=== PATIENT | male | born 1940 | race Caucasian/White ===

== ENCOUNTER → 2020-07-01 19:51 | Outpatient (ROUT) | payer OTHER, SELFPAY ==
[2020-07-01 20:12] LABS: HEMOLYSIS < 15 (0-50)
[2020-07-01 20:19] LABS: Aspartate Aminotransferase 32 IU/L (17-59); BUN Creatinine Ratio 17.6 (6-22); Blood Urea Nitrogen 12 mg/dL (9-20); Calcium 9.4 mg/dL (8.4-10.2); Carbon Dioxide 30 mmol/L (22-32); Chloride 99 mmol/L (98-107); Cholesterol 198 mg/dL (140-199); Estimated Glomerular Filt Rate > 60.0 mL/min (>60); Glucose 85 mg/dL (80-110); HDL Cholesterol 101 mg/dL (40-60); LDL Cholesterol Calculated 79 mg/dL (<100); Potassium 3.9 mmol/L (3.4-5.1); Sodium 136 mmol/L (137-145); Triglycerides 88 mg/dL (35-150)
[2020-07-01 21:07] LABS: Vitamin B12 639 pg/mL (239-931)
[2020-07-04 15:48] LABS: Albumin 3.9 g/dL (2.9-4.4); Alpha 1 Globulin 0.2 g/dL (0.0-0.4); Alpha 2 Globulin 0.8 g/dL (0.4-1.0); Protein, Total 6.9 g/dL (6.0-8.5)
[2020-07-04 18:46] LABS: Prostate Specific Antigen < 0.064 ng/mL (0.10-4.00)
[2020-07-17 11:00] LABS: PDF SEE EMR REFERENCE
== END ==
PROVIDERS: PCP Internal Medicine; Visit Provider Internal Medicine
DX: E78.2 Mixed hyperlipidemia (principal); N40.1 Benign prostatic hyperplasia with lower urinary tract symptoms
CPT/HCPCS: 80048; 80061; 82607; 83036; 84153; 84155; 84165; 84450

== ENCOUNTER → 2021-04-25 11:01 | Outpatient (CLI) | payer MEDICARE, SELFPAY ==
--- NOTE | 2021-04-25 | DI.RAD.S_ITS ---
PROCEDURE: XR KNEE RT 3V INDICATIONS: Unilateral primary osteoarthritis, right knee TECHNIQUE: 3 views of the knee were acquired. COMPARISON: None. FINDINGS: Bones: No fractures or dislocations. There is near severe lateral compartment right knee joint degenerative osteoarthritis with near [id number] articulation. Moderately severe patellofemoral joint knee joint osteoarthritis is present. Small joint effusion is seen in the suprapatellar bursal space, no loose body. No suspicious bony lesions. Soft tissues: No suspicious soft tissue calcifications. IMPRESSION: Near severe lateral compartment knee joint osteoarthritis, moderately severe patellofemoral joint arthritis with reactive small joint effusion. Dictated by: Philip Vernon M.D. on 04/25/2021 at 12:17 Approved by: Philip Vernon M.D. on 04/25/2021 at 12:18
== END ==
PROVIDERS: PCP Internal Medicine; Referring Provider Internal Medicine; Visit Provider Internal Medicine
DX: M17.11 Unilateral primary osteoarthritis, right knee (principal); M25.461 Effusion, right knee
CPT/HCPCS: 73562

== ENCOUNTER → 2021-10-13 10:44 | Outpatient (CLI) | payer MEDICARE, SELFPAY ==
[2021-10-13 14:01] LABS: COVID19 -Nasal RAPID Negative (Negative)
== END ==
PROVIDERS: PCP Internal Medicine; Visit Provider Nurse Practitioner Family
DX: Z01.812 Encounter for preprocedural laboratory examination (principal); Z20.822 Contact with and (suspected) exposure to COVID-19
CPT/HCPCS: 87635; C9803

== ENCOUNTER → 2021-10-22 10:22 | Outpatient (CLI) | payer OTHER, SELFPAY ==
[2021-10-22 12:20] LABS: COVID19 -Nasal RAPID Negative (Negative)
== END ==
PROVIDERS: PCP Internal Medicine; Visit Provider Family Medicine Sleep Medicine
DX: Z20.822 Contact with and (suspected) exposure to COVID-19 (principal)
CPT/HCPCS: 87635; C9803

== ENCOUNTER 2021-10-31 00:23 | Emergency (ER) | payer OTHER, SELFPAY ==
--- NOTE | 2021-10-31 00:06 | ED_ITS ---
HPI - SOB/Dyspnea General Chief Complaint: Shortness of Breath/Dyspnea Stated Complaint: Short of breath Time Seen by Provider: 10/31/21 00:29 History of Present Illness HPI Narrative: 81-year-old male former smoker with history of BPH, hypothyroid, hyperlipidemia presents by EMS for evaluation of shortness of breath just prior to arrival. Patient had been in his normal state of health and had an outpatient right total knee this morning, pain was well tolerated on the combination of oxycodone, Tylenol and ibuprofen. Just prior to arrival patient had a relatively sudden onset shortness of breath with wheezing, increased oral secretions and 1 episode of vomiting. EMS was activated and on their arrival noted his oxygen level to be in the mid 80s and he was wheezing. He was given bronchodilators and had a complete resolution of symptoms prior to his arrival. He denies any rash, itching or chest pain. He denies any medications or foods that are new to him he denies any fever or chills, he has no significant pain, bleeding or drainage from his knee Related Data Home Medications Medication Instructions Recorded Confirmed finasteride 5 mg tablet 5 mg PO DAILY 10/06/21 10/06/21 levothyroxine 137 mcg tablet 137 mcg PO DAILY 10/06/21 10/06/21 rosuvastatin 10 mg tablet 10 mg PO DAILY 10/06/21 10/06/21 vit C 250 mg-vit E 90 mg-zinc 40 1 tab PO BID 10/06/21 10/06/21 mg-copper 1 [id number] capsule (PreserVision AREDS-2) Previous Rx's Medication Instructions Recorded prednisone 20 mg tablet 20 mg PO DAILY #5 tab 10/31/21 Allergies Allergy/AdvReac Type Severity Reaction Status Date / Time No Known Drug Allergies Allergy Verified 10/06/21 10:06 Review of Systems Review of Systems Narrative: GENERAL: Denies chills, fatigue, malaise, fever, sweats. HEENT: see HPI RESPIRATORY: See HPI CARDIOVASCULAR: Denies chest pain, palpitations, orthopnea, edema, GASTROINTESTINAL: see HPI : Denies dysuria, frequency, incontinence, hematuria, urinary retention. MUSCULOSKELETAL: denies weakness, joint pain, or bony pain SKIN: Denies rash, skin lesions, or other NEUROLOGIC: Denies weakness, headache, numbness, change in speech, confusion, seizures, incoordination. PSYCHIATRIC: No concerning psychosocial issues. 12 point review of systems is negative except for those stated above Patient History Medical History Easy bruisability Enlarged prostate HLD (hyperlipidemia) Hypothyroid Osteoarthritis Sinus drainage Surgical History Hx of appendectomy (1971) Hx of left inguinal hernia repair (1998) Hx of right inguinal hernia repair (1987) Hx of right inguinal hernia repair (2008) Hx of tonsillectomy (194) Social History household members: spouse Smoking Status: Former smoker alcohol intake: former Exam Narrative Exam Narrative: GENERAL: [81 year old patient appears stated age. Well-developed patient, in no obvious distress, resting comfortably, no conversational dyspnea, tachypnea or hypoxemia HEAD: Atraumatic. Normocephalic. EYES: Pupils equal round and reactive. Extraocular motions intact. No scleral icterus. No injection or drainage. ENT: Nose without bleeding, purulent drainage. Throat without erythema, tonsillar hypertrophy or exudate. Airway patent. NECK: Trachea midline. Non tender CARDIOVASCULAR: Regular rate and rhythm without murmurs, gallops, or rubs. RESPIRATORY: Clear to auscultation. Breath sounds equal bilaterally. No wheezes, rales, or rhonchi. No increased work of breathing, no use of accessory muscles, tachypnea or hypoxemia GASTROINTESTINAL: Abdomen soft, non-tender, nondistended. EXTREMITIES: No edema or joint tenderness. Right knee still wrapped, not causing patient trouble BACK: Nontender without deformity or crepitance. No flank tenderness. NEURO: AOx3. SKIN: No rash or erythema of visible areas Initial Vital Signs Initial Vital Signs: Vital Signs Temperature 98.2 F 10/31/21 00:28 Pulse Rate 91 H 10/31/21 00:28 Respiratory Rate 16 10/31/21 00:28 Blood Pressure 153/65 H 10/31/21 00:28 Pulse Oximetry 95 10/31/21 00:28 Course Orders Ordered: ED Orders 10/31/21 00:29 Consult to Respiratory Therapy Evaluate & Treat EKG-12 Lead Stat 10/31/21 00:30 XR chest 1V Stat 10/31/21 00:43 Basic Metabolic Panel Stat Complete Blood Count AUTO DIFF Stat Magnesium Stat NT-proBNP (BNP-Adult 18+) Stat Troponin & CK Cardiac Panel Stat 10/31/21 00:50 COVID19 -Nasal swab/Pre-Proc Stat Famotidine (Famotidine 20 Mg/2 Ml Vial) 20 mg IV NOW JAZMIN Last Admin: 10/31/21 00:42 Dose: 20 mg Documented by: RYAN Discontinued Medications Methylprednisolone (Methylprednisolone 125 Mg/2 Ml Vial) 125 mg IV NOW ONE Stop: 10/31/21 00:30 Last Admin: 10/31/21 00:42 Dose: 125 mg Documented by: RYAN Reevaluation(s) Reevaluation #1: Patient continues to be asymptomatic in the department for the duration of his visit. He ambulates through the department with the use of a walker and demonstrates no signs of respiratory distress, ambulatory pulse ox remains in the mid 90s, respirations nonlabored Consultations Consultation #1: Discussed with on-call orthopedist (Dannielle) who sure the opinion the patient is appropriate for discharge, return precautions to be given and follow-up as previously planned Vital Signs Vital signs: Vital Signs - 8 hr 10/31/21 00:28 Temperature 98.2 F Pulse Rate 91 H Respiratory Rate 16 Blood Pressure 153/65 H Pulse Oximetry 95 MDM - SOB/Dyspnea Lab Data Result diagrams: 10/31/21 00:43 10/31/21 00:43 Labs: Lab Results 10/31/21 10/31/21 10/31/21 Range/Units 00:43 00:43 00:50 WBC 8.3 (4.5-11.0) X10^3/uL RBC 3.63 L (4.5-5.9) X10^6/uL Hgb 11.3 L (13.5-17.5) g/dL Hct 33.3 L (41-53) % MCV 91.6 (80-100) fL MCH 31.0 (26-34) PG MCHC 33.9 (30-36) % RDW 13.4 (11.6-14.8) % Plt Count 208 (150-400) X10^3/uL Neut % (Auto) 76.4 H (50-75) % Lymph % (Auto) 8.3 L (25-40) % Hanson % (Auto) 15.2 H (3-14) % Eos % (Auto) 0.0 L (2-4) % Baso % (Auto) 0.1 (0-2) % Neut # (Auto) 6300 (1072-6885) /uL Lymph # (Auto) 700 L (3193-8612) /uL Hanson # (Auto) 1300 H (0-900) /uL Eos # (Auto) 0 (0-450) /uL Baso # (Auto) 0 (0-100) /uL Sodium 129 L (137-145) mmol/L Potassium 3.9 (3.4-5.1) mmol/L Chloride 99 (98-107) mmol/L Carbon Dioxide 26 (22-32) mmol/L BUN 14 (9-20) mg/dL Creatinine 0.74 (0.66-1.25) mg/dL Estimated GFR > 60.0 (>60) mL/min BUN/Creatinine Ratio 18.9 (6-22) Glucose 155 H (80-110) mg/dL Calcium 9.0 (8.4-10.2) mg/dL Magnesium 2.0 (1.6-2.3) mg/dL Total Creatine Kinase 150 (55-170) U/L CK-MB (CK-2) 1.16 (<2.37) ng/mL CK-MB (CK-2) Rel Index 0.8 L (1.5-5.0) % Troponin I < 0.012 (0.01-0.034) ng/mL NT-Pro-B Natriuret Pep 432 (<450) pg/mL SARS-CoV-2 (PCR) Negative (Negative) Imaging Data Chest x-ray: Radiologist's Impression: Krzysztof York??81??M??1940 ? Allergy/Adv: No Known Drug Allergies Close Chest X-Ray (Signed) Elizabet Nice - 10/31/21 Outside EKG 09/23/21 Knee X-Ray (Signed) Philip Vernon - 04/25/21 Launch?[address] [address] XRay Report Signed Patient: Krzysztof York MR#: [id number] : 1940 Acct:[id number] Age/Sex: 81 / M Date of Service: 10/31/21 Loc: ED Accession Number: [id number] ?? Procedure: XR chest 1V Ordering Provider: Noe Alonzo D.O. PROCEDURE:? XR CHEST 1V ? INDICATIONS:? Shortness of breath ? TECHNIQUE:? One view of the chest was acquired.? ? COMPARISON:? None. ? FINDINGS:? ? Surgical changes and devices:? None.? ? Lungs and pleura:? Lungs are clear.? No pleural effusions or pneumothorax.? ? Mediastinum:? Mediastinal contours appear normal.? Heart size is normal.? ? Bones and chest wall:? No suspicious bony lesions.? Overlying soft tissues appear unremarkable.? ? IMPRESSION:? No acute pulmonary process. ? ? Dictated by: Elizabet Nice M.D. on 10/31/2021 at 1:02 ? ? Approved by: Elizabet Nice M.D. on 10/31/2021 at 1:02 ? MDM Narrative Medical decision making narrative: Patient presents by EMS for sudden onset shortness of breath, wheezing, increased oral secretions and an episode of vomiting. Patient had complete resolution of symptoms with above-stated therapies. Multiple diagnoses considered including pneumonia and even pulmonary embolism in the aftermath of surgery but the timeline seems very unlikely along with other elements of history and physical exam. Furthermore, chest x-ray is unremarkable. His history, physical exam and response to therapies raises the suspicion of histamine reaction. He seemed to have no issue in the postoperative phase and tolerated oxycodone earlier in the day which would suggest it is unlikely his opioids. He did have a combination of some Jell-O and applesauce just prior to the event, though he reports having this combination of foods in the past with out issue. Discharge Plan Departure Patient Disposition: Home Clinical Impression: Acute dyspnea, Allergic reaction Instructions: DI for Shortness of Breath Activity Restrictions/Additional Instructions: *You have been diagnosed with [shortness of breath, likely due to a histamine reaction, possibly even allergic reaction. Your history, physical exam, labs, x-ray and response to therapies is very reassuring. As we discussed, I called on-call Orthopedics who are in agreement with the plan for discharge and the medications *What to do: *Please continue to take your regular medications as directed. Also, as we discussed please consider the addition of 2 types of antihistamines which are both available [id number]. First of all, Benadryl (diphenhydramine) is a histamine type 1 sangeeta and Pepcid is a histamine type 2 sangeeta. You may continue taking the Flonase that you had been taking up until a few weeks ago as well [x ] New medication prescriptions sent to your pharmacy: [[facility] ] [ ] New medication written as a paper prescription [ ] No new medications given *Please follow up with your primary care provider in 2-3 days, call for an appointment. Let them know you were seen in the Emergency Department and that we ask that you be seen in follow up. We will electronically transmit a record of today's note if your PCP is in our system *If you do not have a primary care provider please contact the [facility] Resource line at [phone]. They will ask some questions about your medical history and help get you set up with a doctor in the community. *Return to Emergency Department if you should have any new, worsening or concerning symptoms, such as [fever greater than 101 F, shaking chills, worsening pain, persistent vomiting or other bothersome symptoms] Prescriptions: New prednisone 20 mg tablet 20 mg PO DAILY Qty: 5 0RF Rx Instructions: administer with food or milk No Action levothyroxine 137 mcg Tablet 137 mcg PO DAILY 0RF finasteride 5 mg Tablet 5 mg PO DAILY 0RF rosuvastatin 10 mg Tablet 10 mg PO DAILY 0RF PreserVision AREDS-2 250-90-40-1 mg Capsule 1 tab PO BID 0RF Referrals: Tj Epps MD [Primary Care Provider] - Elvis Ledezma MD [Physician] -
[2021-10-31 00:28] VITALS: BP 153/65; PULSE 91; RESP 16; TEMP 36.8; O2SAT 95; BMI 25.1
--- NOTE | 2021-10-31 00:30 | DI.RAD.S_ITS ---
PROCEDURE: XR CHEST 1V INDICATIONS: Shortness of breath TECHNIQUE: One view of the chest was acquired. COMPARISON: None. FINDINGS: Surgical changes and devices: None. Lungs and pleura: Lungs are clear. No pleural effusions or pneumothorax. Mediastinum: Mediastinal contours appear normal. Heart size is normal. Bones and chest wall: No suspicious bony lesions. Overlying soft tissues appear unremarkable. IMPRESSION: No acute pulmonary process. Dictated by: Elizabet Nice M.D. on 10/31/2021 at 1:02 Approved by: Elizabet Nice M.D. on 10/31/2021 at 1:02
[2021-10-31 00:34] VITALS: PULSE 86; O2SAT 97
[2021-10-31] MEDS: methylPREDNISolone 125 MG/2 ML VIAL IV (00:42)
[2021-10-31] MEDS: FAMOTIDINE 20 MG/2 ML VIAL IV (00:42)
[2021-10-31 01:00] VITALS: PULSE 82; RESP 21; O2SAT 96
[2021-10-31 01:04] LABS: Add Manual Diff / Slide Review NO; Basophils Absolute Auto 0 /uL (0-100); Basophils Percent Auto 0.1 % (0-2); Eosinophils Absolute Auto 0 /uL (0-450); Hematocrit 33.3 % (41-53); Hemoglobin 11.3 g/dL (13.5-17.5); Lymphocytes Absolute Auto 700 /uL (1100-4500); Lymphocytes Percent Auto 8.3 % (25-40); Mean Corpuscular HGB Conc 33.9 % (30-36); Mean Corpuscular Volume 91.6 fL (80-100); Monocytes Absolute Auto 1300 /uL (0-900); Monocytes Percent Auto 15.2 % (3-14); Neutrophils Absolute Auto 6300 /uL (1500-7000); Neutrophils Percent Auto 76.4 % (50-75); Platelet Count 208 X10^3/uL (150-400); Red Blood Cell Count 3.63 X10^6/uL (4.5-5.9); Red Cell Distribution Width 13.4 % (11.6-14.8); White Blood Cell Count 8.3 X10^3/uL (4.5-11.0)
[2021-10-31 01:11] LABS: BUN Creatinine Ratio 18.9 (6-22); Blood Urea Nitrogen 14 mg/dL (9-20); Carbon Dioxide 26 mmol/L (22-32); Chloride 99 mmol/L (98-107); Creatine Kinase 150 U/L (55-170); Estimated Glomerular Filt Rate > 60.0 mL/min (>60); Glucose 155 mg/dL (80-110); HEMOLYSIS < 15 (0-50); Potassium 3.9 mmol/L (3.4-5.1); Sodium 129 mmol/L (137-145)
[2021-10-31 01:12] LABS: COVID19 -Nasal RAPID Negative (Negative)
[2021-10-31 01:23] LABS: NT-proBNP (BNP-Adult 18+) 432 pg/mL (<450); Troponin I < 0.012 ng/mL (0.01-0.034)
[2021-10-31 01:26] LABS: CKMB % Relative Index 0.8 % (1.5-5.0); Creatine Kinase MB 1.16 ng/mL (<2.37)
--- NOTE | 2021-10-31 01:40 | PC.NURSE ---
Ambulation trials, pt waked with walker, O2 between 93-99% while walking and talking. Pt denies feels SOB while walking.
[2021-10-31 02:00] VITALS: PULSE 91; RESP 16; O2SAT 95
[2021-10-31] MEDS: ALBUTEROL HFA PREPACK 1 BOX MISC (02:00)
[2021-10-31 02:44] VITALS: PULSE 64; O2SAT 92
[2021-10-31 02:46] VITALS: BP 121/58; PULSE 78; O2SAT 90
== END 2021-10-31 03:00 | disposition home or self-care (01) ==
PROVIDERS: Emergency Provider Emergency Medicine; PCP Internal Medicine
DX: R06.00 Dyspnea, unspecified (principal); T78.40XA Allergy, unspecified, initial encounter; Z87.891 Personal history of nicotine dependence; X58.XXXA Exposure to other specified factors, initial encounter; Z20.822 Contact with and (suspected) exposure to COVID-19
CPT/HCPCS: 36415; 71045; 80048; 82550; 82553; 83735; 83880; 84484; 85025; 87635; 93005; 94640; 96374; 96375; 99283; 99284; C9803; A9270; J2930

== ENCOUNTER → 2022-07-28 13:18 | Outpatient (CLI) | payer OTHER, SELFPAY ==
--- NOTE | 2022-07-28 | DI.RAD.S_ITS ---
PROCEDURE: XR CHEST 2V INDICATIONS: Dyspnea, unspecified TECHNIQUE: 2 views of the chest were acquired. COMPARISON: [facility], CR, XR CHEST 1V, 10/31/2021, 0:30. FINDINGS: Surgical changes and devices: None. Lungs and pleura: Lungs are clear. No pleural effusions or pneumothorax. Mediastinum: Mediastinal contours are normal. Heart size is normal. Bones and chest wall: No suspicious bony abnormalities. Soft tissues appear unremarkable. IMPRESSION: No acute cardiopulmonary abnormality. Dictated by: Quan Méndez M.D. on 07/28/2022 at 20:54 Approved by: Quan Méndez M.D. on 07/28/2022 at 20:56
== END ==
PROVIDERS: PCP Internal Medicine; Referring Provider Internal Medicine; Visit Provider Internal Medicine
DX: R06.00 Dyspnea, unspecified (principal); R06.01 Orthopnea
CPT/HCPCS: 71046

== ENCOUNTER → 2023-11-02 13:46 | Outpatient (CLI) | payer OTHER, SELFPAY ==
--- NOTE | 2023-11-02 13:49 | DI.RAD.S_ITS ---
PROCEDURE: XR CERVICAL SPINE 4V OR 5V INDICATIONS: neck pain TECHNIQUE: 5 views of the cervical spine acquired. COMPARISON: None. 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 Oblique images demonstrate no bony foraminal stenoses. The odontoid view is limited due to overlying soft tissues. Soft tissues: No prevertebral soft tissue swelling. 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 Dictated by: Mier Dee M.D. on 11/02/2023 at 18:52 Approved by: Meir Dee M.D. on 11/02/2023 at 18:55
== END ==
PROVIDERS: PCP Physician Assistant; Referring Provider Anesthesiology; Visit Provider Anesthesiology
DX: M47.812 Spondylosis without myelopathy or radiculopathy, cervical region (principal); M54.2 Cervicalgia
CPT/HCPCS: 72050; 99214